=== PATIENT | male | born 1990 | race Caucasian/White ===

== ENCOUNTER 2020-08-03 06:45 | Day surgery (SDC) | payer OTHER, SELFPAY ==
[2020-08-01 10:32] VITALS: BMI 39.3
[2020-08-03 07:03] VITALS: BP 118/71; PULSE 71; RESP 18; TEMP 36.6; O2SAT 98
--- NOTE | 2020-08-03 07:32 | W.PM.OPSUD ---
Surgery/Procedure H&P Update DATE OF PROCEDURE: August 03, 2020 DATE H&P PERFORMED: 07/21/20 H&P UPDATE INFORMATION: I have reviewed H&P completed within last 30 days, I have examined patient prior to procedure and Changes to prior documentation as noted here CHANGES TO PREVIOUS DOCUMENTATION: Apparently the patient got hospitalized recently and was diagnosed with colitis and bleeding per rectum. Patient was placed on Flagyl and unfortunately a CT scan was obtained work that this is not available or the report. I will plan to limit the procedure today to EGD and will defer the colonoscopy in 4 to 6 weeks after subsidence of the inflammatory process minimize the risk of potential perforation of the colon. Patient agreed on the plan of care and will plan to retrieve records from the outside facility for Further review PREOP DIAGNOSIS: Bleeding per rectum PRIMARY INDICATION FOR PROCEDURE: The same PLANNED PROCEDURE: Operation Date: 08/03/20 07:45 Proposed Procedures p EGD [id number] R10.9 K62.5(Not Applicable) - Mal Zhang MD s Colonoscopy(Not Applicable) - Mal Zhang MD
[2020-08-03] MEDS: sodium chloride 0.9% 1,000 ML 30 ML IV (07:36)
--- NOTE | 2020-08-03 07:40 | ANES.PREANE2 ---
Pre-Anesthetic Assessment Pre-Anesthetic Assessment: Height/Weight: Height 1.85 m Weight 135.171 kg Temp Pulse Resp BP Pulse Ox 97.9 F 71 18 118/71 98 08/03/20 07:03 08/03/20 07:03 08/03/20 07:03 08/03/20 07:03 08/03/20 07:03 Preop Diagnosis: Bleeding per rectum Proposed Procedure: Operation Date: 08/03/20 07:45 Proposed Procedures p EGD [id number] R10.9 K62.5(Not Applicable) - Mal Zhang MD s Colonoscopy(Not Applicable) - Mal Zhang MD Was Beta Seble taken within 24 hours: N/A Last intake: Intake Last Liquid Date 08/02/20 Last Liquid Time 21:30 Last Solid Date 08/01/20 Last Solid Time 02:00 Social: Social History: No alcohol and No tobacco Exam: Pre-Anes Outpt Exam: alert, oriented x 3, clear to auscultation bilaterally and regular rate & rhythm Airway: Submandibular: WNL Cervical ROM: WNL MP: 2 Dentition: Full Pulmonary: Pulmonary: Asthma GI: Comments: Colitis Metabolic: Metabolic: Morbid obesity Anesthetic Plan: ASA status: 2 Anesthesia: MAC Risk of > 500 ml blood loss (7ml/kg in children): No Meds/Allergies Current Medications: Current Medications Generic Name Dose Route Start Last Admin Trade Name Freq PRN Reason Stop Dose Admin Sodium Chloride 1,000 mls @ 30 ml s/hr 08/03/20 07:00 08/03/20 07:36 Sodium Chloride 0.9% IV 08/04/20 06:59 30 mls/hr .Q24H RONIT Administration PFSH Anesthesia PFSH: Family History Other Cancer Social History Smoking and tobacco status: current every day smoker smokeless tobacco Smokeless tobacco user: chewing tobacco Second hand smoke exposure: No Alcohol intake: never Adopted: No Caregiver/support person: Yes Lives independently: Yes Household members: significant other Housing: House Marital status: Single Pets and animals: No History of recent travel: No Sexually active: Yes Current gender identity: Male Savannah/Mosque: Mormonism Special savannah needs: No Agree to transfusion: No Data Anesthesia Cardiac Studies: No Data to Display
[2020-08-03 07:54] VITALS: BP 102/68; PULSE 80; RESP 18; TEMP 36.4; O2SAT 96
[2020-08-03 08:05] VITALS: BP 107/66; PULSE 71; RESP 16; O2SAT 99
--- NOTE | 2020-08-03 08:39 | ANE.PACU2 ---
Inpatient post-anesthesia follow up: Airway intact: Yes Vital signs: Temperature 97.5 F Pulse Rate 71 Respiratory Rate 16 Blood Pressure 107/66 Pulse Oximetry 99 Oxygen Delivery Me thod Room Air Oxygen Flow Rate Fraction of Inspir ed Oxygen Hydration adequate: Yes Nausea and vomiting: No Pain level: 1 Mental status: Baseline
[2020-08-04 05:47] LABS: H. Pylori / CLO Test Negative
== END 2020-08-03 08:15 | disposition home or self-care (01) ==
PROVIDERS: Visit Provider Surgery
PROC: 0DJ08ZZ Inspection of Upper Intestinal Tract, Via Natural or Artificial Opening Endoscopic (ICD-10-PCS; CPT 43235; principal; 2020-08-03 07:45)
DX: K62.5 Hemorrhage of anus and rectum (principal); K21.00 Gastro-esophageal reflux disease with esophagitis, without bleeding; K29.70 Gastritis, unspecified, without bleeding; J45.909 Unspecified asthma, uncomplicated; E66.01 Morbid (severe) obesity due to excess calories; Z68.39 Body mass index [BMI] 39.0-39.9, adult; F17.290 Nicotine dependence, other tobacco product, uncomplicated
CPT/HCPCS: 12345; 43239; 87077; J7030

== ENCOUNTER 2021-01-11 12:33 | Outpatient (CLI) | payer OTHER, SELFPAY ==
--- NOTE | 2021-01-11 12:46 | MR_ITS ---
WS: [id number] MRI LEFT KNEE HISTORY: PAIN IN LEFT KNEE COMPARISON: None available. Anterior cruciate ligament: There is a small amount of fluid adjacent to the ACL suggesting a mild sp rain. No full-thickness tear. Posterior cruciate ligament: Intact. Medial collateral ligament: Intact. Posterior lateral corner structures: Intact. Medial menisci: Intact. Normal signal, size and shape. Lateral meniscus: Intact. Normal signal, size and shape. Extensor mechanism: Distal quadriceps tendon and patellar tendons are intact. Fluid and soft tissue: Very small amount of fluid in the suprapatellar bursa. No Hamilton's cyst. Osseous and articular structures: Patellofemoral compartment: Normal. Medial compartment: No significant narrowing of the medial compartment. Very minimal superficial fiss uring in the femoral condyle along the weightbearing surface. No underlying marrow abnormality. Lateral compartment: Very slight thinning of the cartilage. No full-thickness cartilage defect. There is abnormal signal in the posterior lateral femoral condyle along the nonweightbearing surface. Osteochondral lytic lesion measures 17 x 19 mm. There is subchondral marrow edema and a small focal defect in the cartilage. Favor these changes are all related to an osteochondral defect. No loose bod y appreciated. This may not be associated with recent trauma. MR/MR knee LT wo con* [id number] IMPRESSION: 1. Osteochondral defect in the posterior nonweightbearing surface of the later al femoral condyle measures 17 x 19 mm. No loose body identified. 2. Suspect mild strain versus partial tear of the ACL. No full-thickness tear. 3. No significant joint effusion. 4. Very minimal surface irregularity involving the cartilage of the medial fem oral condyle, weightbearing surface.
--- NOTE | 2021-01-11 12:47 | MR_ITS ---
WS: [id number] MRI LUMBAR SPINE NONCONTRAST TECHNIQUE: Sagittal T1, T2 and STIR imaging. Axial T1 and T2 imaging. CLINICAL INFORMATION: PAIN IN LEFT KNEE COMPARISON: None. FINDINGS: Mild lumbar curve. No acute compression. Mild disc bulging L3-L5 with small annular fissures L4-L5 an d L5-S1. L1-L2: Normal. L2-L3: No significant disc bulging. Mild facet arthropathy. Spinal canal and foramen are patent. L3-L4: Mild annular bulging with a tiny central protrusion. Slight effacement of the ventral thecal s ac. Mild bilateral foraminal narrowing. This is slightly worse in the left. Mild facet arthropathy. L4-L5: Mild annular bulging with a shallow central protrusion and annular fissure. Mild central canal stenosis. Slight impingement traversing L5 nerve roots. Mild facet arthropathy. Mild left foraminal narrowing. Right foramen is patent. L5-S1: Mild annular bulging with a tiny right pericentral protrusion with an annular fissure. Slight contact of the traversing right S1 nerve root. Mild right foraminal narrowing. Mild facet arthropathy . Visualized pelvic bony structures: Normal. Paravertebral soft tissues: Normal. MR/MR lumbar spine wo con* [id number] IMPRESSION: 1. Mild central canal stenosis L3-L4 L4-L5 with small shallow central protrusi ons. 2. Shallow central protrusion L4-5 with small annular fissure impinges the tra versing L5 nerve roots. Mild left L4-5 foraminal narrowing. 3. Tiny right pericentral protrusion L5-S1 contacts the traversing right S1 ne rve root with mild right L5-S1 foraminal narrowing. 4. Narrowing of the left L3-4 subarticular recess.
== END 2021-01-11 12:34 | disposition home or self-care (01) ==
PROVIDERS: Visit Provider Family Medicine
DX: M25.562 Pain in left knee (principal); M54.32 Sciatica, left side; M48.061 Spinal stenosis, lumbar region without neurogenic claudication; M51.27 Other intervertebral disc displacement, lumbosacral region; M51.26 Other intervertebral disc displacement, lumbar region
CPT/HCPCS: 72148; 73721

== ENCOUNTER 2021-01-13 10:58 | Outpatient (CLI) | payer OTHER, SELFPAY ==
--- NOTE | 2021-01-13 11:00 | USCV_ITS ---
Ross Hobson Age: 30 Gender: M : 1990 Exam Date: 01/13/2021 11:22 Ordering Phys: KWAME Dubois APRN Technologist: Christen Raman Exam Location: [facility] – [place] Indication: Acute embolism and thrombosis of unspefied HISTORY: Left lower extremity swelling, pain PROCEDURES: Venous duplex imaging was performed in only the left lower extremity. The following venous structures were evaluated: common femoral vein, profunda vein, proximal portion of the greater saphenous vein, superficial femoral vein, and the popliteal vein. In addition, the posterior tibial and peroneal trunk were evaluated. Serial compression, augmentation maneuvers, and spectral Doppler flow evaluation were performed. FINDINGS: Normal 2-D Doppler and augmentation and compressibility throughout the lower extremity venous structures. Additional imaging through the proximal calf veins also reveals no thrombus. Evidence of acute partial superficial thrombophlebitis in the left greater saphenous vein with normal flow dynamics. CONCLUSIONS No DVT left lower extremity. Acute superficial greater saphenous vein thrombophlebitis. Dr. Alecia Cruz DO (Electronically Signed) Final Date: 13 January 2021 12:26 S
== END 2021-01-13 10:59 | disposition home or self-care (01) ==
PROVIDERS: PCP Family Medicine; Visit Provider Nurse Practitioner Family
DX: I80.00 Phlebitis and thrombophlebitis of superficial vessels of unspecified lower extremity (principal)
CPT/HCPCS: 93971

== ENCOUNTER 2021-01-17 13:03 | Emergency (ER) | payer OTHER, SELFPAY ==
--- NOTE | 2021-01-17 | USCV_ITS ---
Ross Hobson Age: 30 Gender: M : 1990 Exam Date: 01/17/2021 14:02 Ordering Phys: KWAME Dubois APRN Technologist: Exam Location: [facility] Indication: HX SUPERFICAL TROMBUS HISTORY: Lower extremity swelling. PROCEDURES: The following venous structures were evaluated: common femoral vein, profunda vein, proximal portion of the greater saphenous vein, superficial femoral vein, and the popliteal vein. In addition, the posterior tibial and peroneal trunk were evaluated. FINDINGS: Normal 2-D Doppler and augmentation and compressibility throughout the lower extremity venous structures. Additional imaging through the proximal calf veins also reveals no thrombus. Limited evaluation of the greater saphenous vein is patent with no thrombus.. SUPERFICAL THROMBUS IS GONE CONCLUSIONS No evidence of DVT in the above-mentioned identifiable veins. No evidence of thrombosis in the greater saphenous vein Compared to the study from of 01/13/2021, the greater saphenous vein appears to have no evidence of thrombosis at this time Dr Elissa Tobin MD [facility] (Electronically Signed) Final Date: 18 January 2021 00:02 S
[2021-01-17 13:29] VITALS: BP 133/83; PULSE 110; RESP 15; TEMP 36.8; O2SAT 95; BMI 37.5
--- NOTE | 2021-01-17 13:50 | USCV_ITS ---
Ross Hobson Age: 30 Gender: M : 1990 Exam Date: 01/17/2021 14:09 Ordering Phys: Geetha Garcia Technologist: Exam Location: [facility] – [place] Indication: POOR PULSES COOL FOOT Risk Factors: None Previous Vascular Surgery: RIGHT LEFT BP: 130.0 / 80.00 BP: 130.0/ 80.00 0 0 Waveform Velocity (cm/s) Velocity (cm/s) Waveform Iliac Prox 86.0 Triphasic Iliac Mid 84.1 Triphasic Iliac Distal 85.0 Triphasic FOUNTAIN HELPER 80.6 Triphasic SFA Prox 68.3 Triphasic SFA Mid 65.7 Triphasic SFA Dist 56.1 Triphasic POP 37.6 Triphasic CLINICAL INFORMATICS EDUCATOR 40.7 Triphasic DPA 36.4 Triphasic MESERET 1.0 FINDINGS Normal 2-D Doppler and augmentation and compressibility throughout the lower extremity venous structures. Additional imaging through the proximal calf veins also reveals no thrombus. Limited evaluation of the greater saphenous vein is patent with no thrombus.. SUPERFICAL THROMBUS IS GONE. Normal resting MESERET on the left side. Normal Doppler flow velocities Normal Doppler waveforms. CONCLUSIONS Normal resting MESERET with no evidence of any arterial obstruction in the left lower extremity Dr Elissa Tobin MD [facility] (Electronically Signed) Final Date: 18 January 2021 00:05 S
--- NOTE | 2021-01-17 13:51 | ED_ITS ---
HPI - Extremity Problem General: Chief complaint: Extremity Problem,Nontraumatic Stated complaint: left foot discoloration Time Seen by Provider: 01/17/21 13:28 Source: patient Mode of arrival: ambulatory Limitations: no limitations History of Present Illness: HPI Narrative: Patient is a [age]-year-old male who presents to ED today after he was referred here by KWAME garcia for further evaluation of his left leg pain. Patient tells me at the beginning of the month he had a fall and injured his back and knee. He was seen by Dr. Bloom who ordered knee XR/MRI which showed an osteochondral defect along with a possible mild strain versus ACL tear. MRI of his back showed: 1. Mild central canal stenosis L3-L4 L4-L5 with small shallow central protrusions. 2. Shallow central protrusion L4-5 with small annular fissure impinges the traversing L5 nerve roots. Mild left L4-5 foraminal narrowing. 3. Tiny right pericentral protrusion L5-S1 contacts the traversing right S1 nerve root with mild right L5-S1 foraminal narrowing. 4. Narrowing of the left L3-4 subarticular recess Patient states they have placed referrals to neurology and orthopedics. He states he was seen approximately 4 days ago for some discoloration and swelling to his left lower extremity. Ultrasound venous was obtained which showed a superficial thrombophlebitis to his greater saphenous vein. Patient was instructed on NSAID use. Patient return to the clinic today with complaints of worsening pain and swelling. Patient tells me he has noticed left calf pain. He was told at the clinic that they were concerned as they could not palpate pedal pulses. Complaint: extremity pain and extremity swelling Onset (ago): day(s) Pain Consistency: constant Location: left and lower extremity Relieving factors: immobilization Exacerbating factors: weight bearing and walking Associated symptoms: Reports no associated symptoms; Deny chest pain, fever(s) or rash Review of Systems Const: Denies: fever(s), chills, body aches, fatigue or malaise Card: Denies: chest pain Resp: Denies: dyspnea GI: Denies: abdominal pain, nausea or vomiting Musc: Reports: back pain, extremity pain, extremity swelling, joint pain and joint swelling; Denies: neck pain, joint redness or joint warmth Skin/Breast: Denies: rash Neuro: Reports: sensory changes (tingling to L LE); Denies: headache(s), numbness in extremities or weakness in extremities PFSH ED PFSH: Medical History DVT (deep venous thrombosis) DVT (deep venous thrombosis) Thrombophlebitis of left saphenous vein Family History Other Cancer Social History Smoking and tobacco status: former smoker Second hand smoke exposure: No Alcohol intake: never Adopted: No Caregiver/support person: Yes Lives independently: Yes Household members: significant other Housing: House Marital status: Single Pets and animals: No History of recent travel: No Sexually active: Yes Current gender identity: Male Savannah/Zoroastrianism: Sabianism Special savannah needs: No Agree to transfusion: No Physical Exam Const: COMMON NORMALS: no acute distress, patient oriented x3, no limitations and alert GENERAL APPEARANCE: cooperative Resp: COMMON NORMALS: normal respiratory effort and clear to auscultation bilaterally AUSCULTATION: clear to auscultation bilaterally Cardio: COMMON NORMALS: regular rhythm RATE: tachycardic RHYTHM: regular rhythm Extremity: COMMON NORMALS: no pedal edema GENERAL: Yes normal exam except as noted and Yes calf tenderness (L) OTHER: patient has swelling to L LE when compared to R; he has TTP of L calf with and reports pain with Rahat's testing although the pain could be related to his recent knee injury/possible ACL tear; L foot is mildly cool to the touch when compared to the R but cap refill is equally bilaterally; he has weak but palpable DP/PT pulses bilaterally; sensory intact Neuro: COMMON NORMALS: patient oriented x3, moves all extremities, no focal motor deficits and no sensory deficits noted SENSORIUM/ORIENTATION: Yes alert Skin: COMMON NORMALS: no rashes or lesions noted GENERAL SKIN EXAM: no r ashes or lesions noted TRAUMA: no lacerations or abrasions Course Vital Signs: Vital signs: Vital Signs Temperature 98.2 F 01/17/21 13:29 Pulse Rate 110 H 01/17/21 13:29 Respiratory Rate 15 01/17/21 13:29 Blood Pressure 133/83 01/17/21 13:29 Pulse Oximetry 95 06/29/21 13:29 MDM - Extremity (Nontraumatic) MDM Narrative: Medical decision making narrative: Patient's venous/arterial ultrasounds are normal. Recommend continuing to follow up with PCP and plan for referrals to ortho/neuro. Imaging Data^: US venous L LE: My impression: Per Vladimir Castillo US tech?patient no longer has a superficial thrombophlebitis that was seen on his previous ultrasound report, no DVT US arterial L LE: My impression: Per Vladimir Castillo, US tech?triphasic arterial flow throughout extremity, 1.0 MESERET Discharge Plan Discharge Patient Disposition: Home Clinical Impression: Swelling of left lower extremity Condition: Stable Prescriptions: No Action albuterol sulfate 90 mcg/actuation HFA aerosol inhaler 1 inh INHALATION QID Qty: 6.7 RF: 3 (DME) L knee brace See Rx Instructions .Route .MEDSUPPLY Qty: 1 RF: 0 (DME) back brace See Rx Instructions .Route .MEDSUPPLY Qty: 1 RF: 0 ibuprofen 800 mg tablet See Rx Instructions PO .COMPLEX MDD 2.4g/day 30 Days Qty: 60 RF: 0 hydrocodone-acetaminophen 5-325 mg tablet 1 tab PO Q6H PRN (Reason: pain) 5 Days Qty: 20 RF: 0 pantoprazole 40 mg tablet,delayed release (DR/EC) 40 mg PO DAILY 30 Days Qty: 30 RF: 0 naproxen 500 mg tablet 500 mg PO BID PRN (Reason: pain) 30 Days Qty: 60 RF: 0 gabapentin 300 mg capsule 300 mg PO BID 30 Days Qty: 60 RF: 0 Discharge Orders: Discharge ED (Routine); Ordered 01/17/21 Ordered By: Geetha Garcia Referrals: Carlos Bloom MD [Primary Care Provider] - Coding Level of Care Code ED [employer] Installer for Chg Fwd Exam Detailed
== END 2021-01-17 16:13 | disposition home or self-care (01) ==
PROVIDERS: Emergency Provider Physician Assistant; PCP Family Medicine
DX: M79.89 Other specified soft tissue disorders (principal); Z87.891 Personal history of nicotine dependence; Z86.718 Personal history of other venous thrombosis and embolism
CPT/HCPCS: 93926; 93971; 99282

== ENCOUNTER → 2021-05-05 14:03 | Outpatient (BNVA) | payer OTHER, SELFPAY | PROVIDERS: PCP Family Medicine; Visit Provider Registered Nurse | DX: Z02.1 Encounter for pre-employment examination (principal) | CPT/HCPCS: 80307 ==

== ENCOUNTER → 2021-12-01 09:49 | Outpatient (BNVA) | payer SELFPAY | PROVIDERS: PCP Family Medicine; Visit Provider Nurse Practitioner | DX: R10.9 Unspecified abdominal pain (principal); R50.9 Fever, unspecified | CPT/HCPCS: 85025; 85651; 86140; 86431 ==

== ENCOUNTER 2022-05-04 07:42 | Outpatient (CLI) | payer OTHER, SELFPAY ==
--- NOTE | 2022-05-04 08:30 | FL_ITS ---
WS: [id number] Small bowel series, 05/04/2022 Clinical Data: Frequent blood in the stool, constipation, recurrent fever at night. Comparison: None. Fluoroscopy time: 0min [id number] # of spot films: 10 Findings: The preliminary film shows no abnormalities. There is fecal material in the colon. There is no bowel dilatation or obstruction. No abnormal masses or calcifications are seen. There are clips in the righ t upper quadrant from a cholecystectomy. The patient swallowed the barium and it filled the stomach a nd proximal small bowel. Within 30 minutes the barium proceeded to fill the jejunum. At 1 hour the il eum was filled. At 1 hour and 30 minutes there was filling of the ascending colon and cecum. Spot martha ms of the right lower quadrant showed no abnormalities. There is no evidence of any obstruction or na rrowing of the terminal ileum. The ascending colon has fecal material within. FL/[place] gastro [id number] Impression: Normal small bowel follow-through.
== END 2022-05-04 07:43 | disposition home or self-care (01) ==
LOC: RAD 07:42
PROVIDERS: PCP Family Medicine; Visit Provider Internal Medicine
DX: K62.5 Hemorrhage of anus and rectum (principal); K59.00 Constipation, unspecified
CPT/HCPCS: 74250

== ENCOUNTER 2024-08-18 06:51 | Outpatient (CLI) | payer OTHER, SELFPAY ==
[2024-08-18] MEDS: albuterol 2.5 mg/3 mL Neb INHALATION (07:18)
== END 2024-08-18 06:52 | disposition home or self-care (01) ==
LOC: RT 06:54
PROVIDERS: PCP Family Medicine; Visit Provider Specialist
DX: J45.998 Other asthma (principal)
CPT/HCPCS: 94060; J7613

== ENCOUNTER → 2025-05-31 10:03 | Outpatient (BNVA) | payer OTHER, SELFPAY | PROVIDERS: PCP Nurse Practitioner Family; Visit Provider Nurse Practitioner Family | DX: B37.0 Candidal stomatitis (principal) | CPT/HCPCS: 87070 ==

== ENCOUNTER → 2025-06-03 08:54 | Outpatient (BNVA) | payer OTHER, SELFPAY | PROVIDERS: PCP Nurse Practitioner Family; Visit Provider Nurse Practitioner Family | DX: Z13.6 Encounter for screening for cardiovascular disorders (principal); B37.0 Candidal stomatitis; J45.21 Mild intermittent asthma with (acute) exacerbation; Z79.899 Other long term (current) drug therapy | CPT/HCPCS: 80053; 80061; 82306; 83036; 84443; 85025 ==